=== PATIENT | male | born 1980 | race Two or more races ===

== ENCOUNTER 2025-10-04 22:55 | Emergency (ER) | payer OTHER ==
[~2025-10-04] VITALS: Ht 170.2 cm; Wt 108.0 kg
[~2025-10-04 22:55] MED LIST: KETO10TA2 PO; NORFLEX100MG PO
[2025-10-05 00:11] LABS: BASO % 0.3 % (0.1-1.2); EOS # 0.27 (0.04-0.54); EOS % 2.8 % (0.7-7.0); LYMPH # 1.13 (1.18-3.74); LYMPH % 11.8 % (19.3-53.1); MEAN PLATELET VOLUME 8.80 fl (9.4-12.4); MONO # 0.84 (0.24-0.82); MONO % 8.8 % (4.7-12.5); NEUT # 7.24 (1.56-6.13); NEUT % 76.0 % (34.0-71.1); RED CELL DISTRIBUTION WIDTH 12.3 % (11.6-14.4)
[2025-10-05 00:48] LABS: URINE APPEARANCE Clear; URINE BILIRRUBIN Negative (NEGATIVE); URINE BLOOD Negative; URINE COLOR Yellow; URINE GLUCOSE Negative (NEGATIVE); URINE KETONE Trace (NEGATIVE); URINE LEUKOCYTE Negative; URINE NITRATE Negative; URINE PROTEIN Trace (NEGATIVE); URINE UROBILINOGEN 1.0 E.U./dl
[2025-10-05 00:51] LABS: URINE EPITHELIAL CELLS 1.9 uL (0.0-38.8); URINE WBC 5.3 uL (0.0-23.2)
[2025-10-05 00:53] LABS: URINE BACTERIA 1.1 uL (0.0-1933); URINE CAST 0.00 uL (0.0-1.40); URINE RBC 0.7 uL (0.0-20.8)
[2025-10-05 01:06] LABS: COVID-19 AG NEGATIVE (NEGATIVE)
[2025-10-05] MEDS ORDERED: CIPRO500 MG PO (03:00)
[2025-10-05] MEDS ORDERED: MUPIROCIN1 G1 TOP (03:00)
[2025-10-05] MEDS ORDERED: DOLOGESIC-DF 51 EACH PO (03:03)
== END 2025-10-05 03:15 ==
LOC: ER 22:56
PROVIDERS: General Practice
DX: R30.0 Dysuria (principal); R53.81 Other malaise; Z20.822 Contact with and (suspected) exposure to COVID-19; Z88.0 Allergy status to penicillin